=== PATIENT | female | born 1990 | race Caucasian/White ===

== ENCOUNTER 2017-05-25 08:32 | Emergency (ER) | payer OTHER ==
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
== END 2017-05-25 10:20 | disposition disaster alternative care site (69) ==
LOC: GACC 08:32
DX: S09.90XA Unspecified injury of head, initial encounter (principal); S19.9XXA Unspecified injury of neck, initial encounter; F41.9 Anxiety disorder, unspecified; F32.9 Major depressive disorder, single episode, unspecified; I34.1 Nonrheumatic mitral (valve) prolapse; Z79.899 Other long term (current) drug therapy; V49.40XA Driver injured in collision with unspecified motor vehicles in traffic accident, initial encounter; Y92.410 Unspecified street and highway as the place of occurrence of the external cause

== ENCOUNTER → 2017-05-25 | Emergency (ER) | payer SELFPAY ==
[~2017-05-25] MED LIST: PRISTIQ 50 MG E50 MG PO
== END | disposition disaster alternative care site (69) ==
LOC: GAMB 07:57
DX: S09.90XA Unspecified injury of head, initial encounter (principal); R51 Headache; Z86.69 Personal history of other diseases of the nervous system and sense organs; Z79.899 Other long term (current) drug therapy; Y32.XXXA Crashing of motor vehicle, undetermined intent, initial encounter